=== PATIENT | male | born 1985 | race Caucasian/White ===

== ENCOUNTER 2022-08-03 19:09 | Emergency (ER) | payer SELFPAY ==
[2022-08-03 19:10] VITALS: BP 139/81; PULSE 100; RESP 16; TEMP 36.2; O2SAT 98
[2022-08-03] MEDS: METOCLOPRAMIDE HCL INJ 10 MG/2 ML VIAL IV PUSH (19:30)
[2022-08-03] MEDS: KETOROLAC 30 MG/ML VIAL (*BKC) IV PUSH (19:30)
--- NOTE | 2022-08-03 19:30 | ED.HA ---
HPI - Headache General Chief Complaint: Headache Stated Complaint: headache Source: patient and family Mode of arrival: ambulatory Limitations: no limitations History of Present Illness HPI Narrative: This is a 36-year-old gentleman that presents to the ER with headache, has had this headache for the last week and intensified over last few hours throbbing sensitive to light with noise sensitivity, nauseous with no vomiting has typical migraines and usually takes Tylenol that helps. There is no neck stiffness no fever chills no chest pain no shortness of breath. MD elicited complaint: migraine Onset (ago): day(s) Onset description: gradually Location: frontal Severity: moderate Pain scale (0-10): 8 Quality & Timing: throbbing Exacerbating factors: light and noise Relieving factors: rest, NSAIDs and dark room Related Data Home Medications Medication Instructions Recorded Confirmed amitriptyline 25 mg tablet 25 mg PO DAILY 08/03/22 08/03/22 atenolol 100 mg tablet 100 mg PO DAILY 08/03/22 08/03/22 metformin 500 mg tablet,extended 500 mg PO DAILY 08/03/22 08/03/22 release 24 hr semaglutide 7 mg tablet (Rybelsus) 7 mg PO DAILY 08/03/22 08/03/22 Allergies Allergy/AdvReac Type Severity Reaction Status Date / Time No Known Allergies Allergy Verified 08/09/19 22:35 Review of Systems Review of Systems: All systems reviewed & are unremarkable except as noted in HPI and below PMFSH Past Medical History Medical History Migraine Surgical History Surgical History Hx of shoulder surgery Social History Social History Gender identity (if verbalized by the patient): Male Exam Const: General: healthy appearing Nutritional Appearance: well nourished HENMT: Head: normal to inspection Ears: external ears normal Face/Nose/Sinus: Normal external nose present Face and sinus: normal facial exam Mouth: Yes Normal oral and palatal mucosa present Eyes: Conjunctivae: conjunctivae normal EOM: EOMs intact bilaterally Neck: Neck: normal visual inspection Chest: Chest palpation & inspection: normal inspection of the chest Resp: Effort & Inspection: normal respiratory effort Cardio: Rate: regular rate Rhythm: regular rhythm GI: GI Palp: Yes Soft to palpation Auscultation: normal bowel sounds : General: Yes bladder normal to palpation Back/Spine/Pelvis: Back: no CVA tenderness Skin: General skin exam: normal color Rashes: no rashes Wounds: no wounds Neuro: General: patient oriented x3, moves all extremities, no meningeal signs and no focal motor deficits Cranial nerves: Yes Nystagmus not present Speech: normal speech Gait exam (Neuro): Normal gait present Extrem: General: normal to inspection, no clubbing, cyanosis or edema and no pedal edema Psych: Mental Status: mental status grossly normal Affect: normal affect Course Course Emergency Course: patient received IV fluids, and IV ketorolac 30mg, with Reglan and Benadryl. Reassessment of patient and migraine headache has improved. Critical Care Time Critical Care Time Critical Care Time: No Discharge Plan Discharge Clinical Impression: Migraine Qualifiers: Migraine type: unspecified Status migrainosus presence: without status migrainosus Intractability: not intractable Qualified Code(s): G43.909 - Migraine, unspecified, not intractable, without status migrainosus Patient Disposition: Home, Self-Care Condition: Stable Instructions: Antibiotic Form, Migraine Headache (ED) Additional Instructions: Take medicine as prescribed and follow-up with primary care physician if symptoms persist or worsen. Prescriptions: New tramadol 50 mg tablet 50 mg PO Q6H PRN (Reason: pain) Qty: 20 0RF No Action atenolol 100 mg tablet 100 mg PO DAILY amitriptyline
[2022-08-03] MEDS: diphenhydrAMINE HCl INJ 50 MG/ML VIAL 25 MG IV PUSH (19:31)
[2022-08-03] MEDS: SODIUM CHLORIDE 0.9% IV 500 ML 999 ML IV CONT (19:32)
[2022-08-03 20:20] VITALS: BP 131/88; PULSE 100; RESP 16; TEMP 36.6; O2SAT 98
== END 2022-08-03 20:21 | disposition home or self-care (01) ==
LOC: CHSED 19:36
PROVIDERS: Emergency Provider Emergency Medicine
DX: G43.909 Migraine, unspecified, not intractable, without status migrainosus (principal)
CPT/HCPCS: 96361; 96374; 96375; 99284; J1200; J1885; J2765; J7040

== ENCOUNTER 2022-08-14 19:56 | Emergency (ER) | payer SELFPAY ==
[2022-08-14 20:35] VITALS: BP 121/87; PULSE 75; RESP 16; TEMP 36.3; O2SAT 95
--- NOTE | 2022-08-14 22:28 | ED.SKABFB ---
HPI - Skin/Abscess/Foreign Bdy General Chief complaint: Skin/Abscess/Foreign Body Stated complaint: neck pain/injury Time Seen by Provider: 08/14/22 19:58 Source: patient and RN notes reviewed Mode of arrival: ambulatory Limitations: no limitations History of Present Illness complaint: abscess/boil (of posterior neck) Onset (ago): day(s) (4) Tetanus up to date: unsure Location: neck Severity: mild Severity scale (1-10): 3 Quality: aching Pain Consistency: constant Relieving factors: none Exacerbating factors: none Treatments prior to arrival: none Related Data Home Medications Medication Instructions Recorded Confirmed amitriptyline 25 mg tablet 25 mg PO DAILY 08/03/22 08/14/22 atenolol 100 mg tablet 100 mg PO DAILY 08/03/22 08/14/22 Allergies Allergy/AdvReac Type Severity Reaction Status Date / Time No Known Allergies Allergy Verified 08/14/22 20:56 Review of Systems Review of Systems: All systems reviewed & are unremarkable except as noted in HPI and below Constitutional: Constitutional: Reports no additional constitutional complaints Eyes: Eyes: Reports no additional eye complaints ENT: Reports system reviewed and no additional complaints, except as documented Cardiovascular: Cardiovascular: Reports no additional cardiovascular complaints Respiratory: Respiratory: Reports no additional respiratory complaints Gastrointestinal: Gastrointestinal: Reports no additional gastrointestinal complaints Musculoskeletal: Musculoskeletal: Reports no additional musculoskeletal complaints Integumentary/Breasts: Skin/Breast: Reports system reviewed and no additional complaints, except as docu Neurologic: Reports system reviewed and no additional complaints, except as documented Psychiatric: Psychiatric: Reports no additional psychiatric complaints Endocrine: Endocrine: Reports no additional endocrine complaints Hematologic/Lymphatic: Hematologic/Lymphatic: Reports no additional hematologic/lymphatic complaints Allergic/Immunologic: Allergic/Immunologic: Reports no additional allergic/immunologic complaints PMFSH Past Medical History Medical History (Updated 08/23/22 @ 13:51 by Isaias Chaparro MD) Abscess (06/24/12) Migraine Skin ulcer of neck Surgical History Surgical History Hx of shoulder surgery Social History Social History Gender identity (if verbalized by the patient): Male Exam Const: General: healthy appearing, no acute distress and well nourished Nutritional Appearance: well nourished Orientation/consciousness: patient oriented x3 Limitations: no limitations HENMT: Head: normal to inspection Ears: external ears normal, TM's normal bilaterally and EAC's normal Face/Nose/Sinus: Normal external nose present, Normal nares present, normal facial exam and sinuses nontender Face and sinus: normal facial exam and sinuses nontender Mouth: Yes Normal oral and palatal mucosa present and Yes moist mucous membranes Teeth and gingiva: dentition normal Throat: posterior oropharynx normal Other: posterior neck 1.5 cm diameter hyperemic minimally swollen shallow ucer, minimal pus Eyes: Conjunctivae: conjunctivae normal Pupils: Equal, round and reactive pupils present EOM: EOMs intact bilaterally Neck: Neck: normal visual inspection, no lymphadenopathy and no meningeal signs Other: post neck ulcer Chest: Chest palpation & inspection: normal inspection of the chest Resp: Effort & Inspection: normal respiratory effort Auscultation: clear to auscultation bilaterally Cardio: Rate: regular rate Rhythm: regular rhythm GI: GI Palp: Yes Soft to palpation and No Tenderness to palpation present (GI) Auscultation: normal bowel sounds : General: Yes bladder normal to palpation and Yes no CVA tenderness Back/Spine/Pelvis: Back: no CVA tenderness Skin: General skin exam: n
[2022-08-14] MEDS: IBUPROFEN 400 MG TABLET 800 MG PO (22:47)
[2022-08-14] MEDS: cefTRIAXone 1 GM, LIDOCAINE HCL 1% LOCAL INJ 2.1 ML IM (22:47)
== END 2022-08-14 23:05 | disposition home or self-care (01) ==
PROVIDERS: Emergency Provider Emergency Medicine
DX: L03.221 Cellulitis of neck (principal)
CPT/HCPCS: 96372; 99283; A9270; J0696

== ENCOUNTER 2022-09-21 17:52 | Emergency (ER) | payer OTHER, SELFPAY ==
--- NOTE | ~2022-09-21 | XR_ITS ---
XR wrist RT 2V, XR hand RT 2V 09/21/2022 18:24 INDICATION: Right hand and wrist pain after recent injury PROCEDURE: 2 views right wrist and 2 views right hand COMPARISON: No prior studies for comparison. FINDINGS: Fracture, dislocation or subluxation is not identified. The soft tissues appear within norm al limits. There is a small punctate foreign body adjacent to the first metacarpal distally. IMPRESSION: 1: No acute fracture. 2: Small metallic foreign body adjacent to the first metacarpal distally. Reviewed, dictated and finalized at location [facility]. [employer] IMPRESSION: 1: No acute fracture. 2: Small metallic foreign body adjacent to the first metacarpal distally.
[2022-09-21 17:55] VITALS: BP 157/87; PULSE 74; RESP 18; TEMP 36.9; O2SAT 98
--- NOTE | 2022-09-21 18:36 | ED.UPPEXIN ---
HPI - Extremity Injury (Upper) General Chief Complaint: Extremity Injury, Upper Stated Complaint: right wrist injury Time Seen by Provider: 09/21/22 18:11 Source: patient Mode of arrival: ambulatory Limitations: no limitations History of Present Illness HPI narrative: this is a 36-year-old gentleman that presents with a 1 day history of right anterior hand pain after review his kicked by a cow causing pain with currently mild swelling with no bruising has good range of motion no numbness or tingling. complaint: injury to: right Onset (ago): day(s) Other Extremity Injury: Right: hand ( tender without bruising or swelling) Related Data Home Medications Medication Instructions Recorded Confirmed amitriptyline 25 mg tablet 25 mg PO DAILY 08/03/22 09/21/22 atenolol 100 mg tablet 100 mg PO DAILY 08/03/22 09/21/22 cyclobenzaprine 10 mg tablet 10 mg PO TID 09/21/22 09/21/22 omeprazole 20 mg capsule,delayed 20 mg PO DAILY 09/21/22 09/21/22 release semaglutide 7 mg tablet (Rybelsus) 7 mg PO DAILY 09/21/22 09/21/22 Allergies Allergy/AdvReac Type Severity Reaction Status Date / Time No Known Allergies Allergy Verified 09/21/22 18:06 Review of Systems Review of Systems: All systems reviewed & are unremarkable except as noted in HPI and below PMFSH Past Medical History Medical History Abscess (06/24/12) Migraine Skin ulcer of neck Surgical History Surgical History Hx of shoulder surgery Social History Social History Gender identity (if verbalized by the patient): Male Exam Const: General: healthy appearing and no acute distress Nutritional Appearance: well nourished Orientation/consciousness: patient oriented x3 Limitations: no limitations HENMT: Head: normal to inspection Face/Nose/Sinus: Normal external nose present Face and sinus: normal facial exam Eyes: Conjunctivae: conjunctivae normal Pupils: Equal, round and reactive pupils present EOM: EOMs intact bilaterally Neck: Neck: normal visual inspection Chest: Chest palpation & inspection: normal inspection of the chest Resp: Effort & Inspection: normal respiratory effort Auscultation: clear to auscultation bilaterally Cardio: Rate: regular rate Rhythm: regular rhythm GI: GI Palp: Yes Soft to palpation Auscultation: normal bowel sounds : General: Yes bladder normal to palpation Urinary Catheter: Urinary Catheter: patent and draining Back/Spine/Pelvis: Back: no CVA tenderness Skin: General skin exam: normal color Rashes: no rashes Wounds: no wounds Neuro: General: patient oriented x3, moves all extremities, no meningeal signs and no focal motor deficits Extrem: General: normal to inspection Psych: Mental Status: mental status grossly normal Affect: normal affect Course Course Emergency Course: X-rays reviewed with patient which showed no acute fractures, patient took ibuprofen prior to arriving declined any pain medicine at this time. Vital Signs Vital signs: Vital Signs Temperature 36.9 C 09/21/22 17:55 Pulse Rate 74 09/21/22 17:55 Respiratory Rate 18 09/21/22 17:55 Blood Pressure 157/87 H 09/21/22 17:55 Pulse Oximetry 98 09/21/22 17:55 Oxygen Delivery Room Air 09/21/22 17:55 Temperature 36.9 C 09/21/22 17:55 Pulse Rate 74 09/21/22 17:55 Respiratory Rate 18 09/21/22 17:55 Blood Pressure 157/87 H 09/21/22 17:55 Pulse Oximetry 98 09/21/22 17:55 Oxygen Delivery Room Air 09/21/22 17:55 Critical Care Time Critical Care Time Critical Care Time: No Discharge Plan Discharge Clinical Impression: Hand sprain Qualifiers: Encounter type: initial encounter Laterality: right Qualified Code(s): S63.91XA - Sprain of unspecified part of right wrist and hand, initial encounter Patient Disposition: Home, Self-Ca
== END 2022-09-21 18:47 | disposition home or self-care (01) ==
PROVIDERS: Emergency Provider Emergency Medicine
DX: S63.91XA Sprain of unspecified part of right wrist and hand, initial encounter (principal); W55.22XA Struck by cow, initial encounter
CPT/HCPCS: 73100; 73120; 99283

== ENCOUNTER 2023-04-18 19:06 | Emergency (ER) | payer OTHER, SELFPAY ==
[2023-04-18 19:14] VITALS: BP 165/104; PULSE 111; RESP 16; TEMP 36.8; O2SAT 97
--- NOTE | 2023-04-18 19:26 | ED.GENADULT ---
HPI - General Adult General Chief complaint: Headache Stated complaint: L side pain Time Seen by Provider: 04/18/23 19:16 Source: patient Mode of arrival: ambulatory Limitations: no limitations History of Present Illness HPI narrative: 37-year-old male with uncontrolled diabetes with an HGB A1c greater than 11( on Rybelsus and Jardiance), migraine with left-sided dental infection presents to the ER with -- left-sided facial pain -- recent left-sided dental infection Onset (ago): day(s) ( for 2 days) Location: face and left Radiation: non-radiation Quality: aching Pain Consistency: constant Relieving factors: none Exacerbating factors: none Associated symptoms: denies other symptoms and weakness Related Data Home Medications Medication Instructions Recorded Confirmed amitriptyline 25 mg tablet 25 mg PO DAILY 08/03/22 04/18/23 atenolol 100 mg tablet 100 mg PO DAILY 08/03/22 04/18/23 cyclobenzaprine 10 mg tablet 10 mg PO TID 09/21/22 04/18/23 omeprazole 20 mg capsule,delayed 20 mg PO DAILY 09/21/22 04/18/23 release semaglutide 7 mg tablet (Rybelsus) 7 mg PO DAILY 09/21/22 04/18/23 Allergies Allergy/AdvReac Type Severity Reaction Status Date / Time No Known Allergies Allergy Verified 04/18/23 19:11 Review of Systems Review of Systems: All systems reviewed & are unremarkable except as noted in HPI and below Constitutional: Constitutional: Reports as per HPI and Reports no additional constitutional complaints Eyes: Eyes: Reports as per HPI and Reports no additional eye complaints ENT: Reports system reviewed and no additional complaints, except as documented Comments: left upper and lower jaw pain in the recent past but none today Cardiovascular: Cardiovascular: Reports as per HPI and Reports no additional cardiovascular complaints Respiratory: Respiratory: Reports as per HPI and Reports no additional respiratory complaints Gastrointestinal: Gastrointestinal: Reports as per HPI and Reports no additional gastrointestinal complaints Genitourinary: Genitourinary: Reports no additional male genitourinary complaints and Reports as per HPI Musculoskeletal: Musculoskeletal: Reports no additional musculoskeletal complaints and Reports as per HPI Integumentary/Breasts: Skin/Breast: Reports system reviewed and no additional complaints, except as docu and Reports as per HPI Neurologic: Reports system reviewed and no additional complaints, except as documented and Reports as per HPI Psychiatric: Psychiatric: Reports no additional psychiatric complaints and Reports as per HPI Endocrine: Endocrine: Reports no additional endocrine complaints and Reports as per HPI Hematologic/Lymphatic: Hematologic/Lymphatic: Reports no additional hematologic/lymphatic complaints and Reports as per HPI Allergic/Immunologic: Allergic/Immunologic: Reports no additional allergic/immunologic complaints and Reports as per HPI [facility] Past Medical History Medical History (Updated 04/18/23 @ 19:43 by Doni Díaz MD) Abscess (06/24/12) Diabetes mellitus Migraine Skin ulcer of neck Surgical History Surgical History Hx of shoulder surgery Social History Social History Gender identity (if verbalized by the patient): Male Exam Narrative: hypertension with blood pressure 165/104 Const: General: no acute distress Orientation/consciousness: patient oriented x3 HENMT: Head: normal to inspection Ears: external ears normal Face/Nose/Sinus: Normal external nose present Face and sinus: normal facial exam ( left facial swelling) Mouth: Yes Normal oral and palatal mucosa present Teeth and gingiva: abnormal tooth and associated gingiva ( extensive dental caries) Throat: posterior oropharynx normal ( oral thrush) Eyes: Conjunctivae: conjunctivae normal Pupils: Equal, round and reactive pupils present E
[2023-04-18 19:30] LABS: Glucose Point of Care 288 mg/dl (65-105)
[2023-04-18] MEDS: HYDROcodone/acetaminophen (*CRX) 5-325 MG TABLET 1 TAB PO (19:50)
[2023-04-18] MEDS: AMOXICILLIN/CLAVULANATE K 875-125 MG TAB 1 TABLET PO (19:50)
[2023-04-18 19:57] VITALS: BP 147/94; PULSE 99; RESP 16; TEMP 36.8; O2SAT 100
== END 2023-04-18 19:59 | disposition home or self-care (01) ==
LOC: CHSED 19:49
PROVIDERS: Emergency Provider Internal Medicine Critical Care Medicine; PCP Family Medicine
DX: E11.65 Type 2 diabetes mellitus with hyperglycemia (principal); K08.89 Other specified disorders of teeth and supporting structures; B37.0 Candidal stomatitis; Z79.84 Long term (current) use of oral hypoglycemic drugs
CPT/HCPCS: 82948; 99283; A9270

== ENCOUNTER 2023-05-27 20:01 | Emergency (ER) | payer OTHER, SELFPAY ==
[2023-05-27 20:07] VITALS: BP 157/97; PULSE 99; RESP 18; TEMP 36.5; O2SAT 99
[2023-05-27 20:42] VITALS: BP 137/99
--- NOTE | 2023-05-27 22:40 | ED.GENADULT ---
HPI - General Adult General Chief complaint: Wound/Laceration Stated complaint: Bug Bite Source: patient Mode of arrival: ambulatory Limitations: no limitations History of Present Illness HPI narrative: patient is a 37-year-old white male complains of a sore on his right forearm proximally that he noticed yesterday. Does not remember any trauma or being bit by a bug. The sore is gotten bigger and red and hot and warm hurts more he took some ibuprofen 100 mg without much help. Said today it has been draining clear liquid he has also had some nausea and vomited [address] the emergency department denies any fever. He did not eat very much today but is able to keep liquids down. Denies any cough fever sore throat runny nose bleeding or bruising dizziness or lightheadedness other lumps or bumps weakness or numbness problems walking talking seeing or hearing problems voiding stooling. denies any other complaints. Past medical history diabetes Past surgical history knee surgery left shoulder Allergies no known drug allergies Related Data Home Medications Medication Instructions Recorded Confirmed amitriptyline 25 mg tablet 25 mg PO DAILY 08/03/22 05/27/23 atenolol 100 mg tablet 100 mg PO DAILY 08/03/22 05/27/23 cyclobenzaprine 10 mg tablet 10 mg PO TID 09/21/22 05/27/23 omeprazole 20 mg capsule,delayed 20 mg PO DAILY 09/21/22 05/27/23 release semaglutide 7 mg tablet (Rybelsus) 7 mg PO DAILY 09/21/22 05/27/23 Allergies Allergy/AdvReac Type Severity Reaction Status Date / Time No Known Allergies Allergy Verified 05/27/23 20:05 Review of Systems Review of Systems: All systems reviewed & are unremarkable except as noted in HPI and below PMFSH Past Medical History Medical History Abscess (06/24/12) Diabetes mellitus Migraine Skin ulcer of neck Surgical History Surgical History Hx of shoulder surgery Social History Social History Gender identity (if verbalized by the patient): Male Exam Narrative: White male patient no apparent distress.? Head normocephalic, atraumatic.? Eyes conjunctiva pink sclera nonicteric.? Extraocular movements are intact.? Ears externally normal.? Oropharynx is clear with moist mucous membranes without exudates.? Neck is supple nontender no lymphadenopathy.? Back is nontender.? Lungs are clear.? Heart is regular rate and rhythm without murmurs gallops or rubs.? Chest wall is nontender.? Abdomen is soft and nontender no hepatosplenomegaly or masses no CVA tenderness no abdominal bruits.? Extremities: Right proximal forearm has a 1 cm sore with surrounding erythema and induration of about 3 x 3 cm red warm and tender with clear discharge.? Skin is warm and dry.? Neurological patient is alert and oriented x4.? Motor and sensory grossly intact.? Gait is normal. Course Vital Signs Vital signs: Vital Signs Temperature 36.5 C 05/27/23 20:07 Pulse Rate 99 05/27/23 20:07 Respiratory Rate 18 05/27/23 20:07 Blood Pressure 157/97 H 05/27/23 20:07 Pulse Oximetry 99 05/27/23 20:07 Oxygen Delivery Room Air 05/27/23 20:07 Temperature 36.5 C 05/27/23 23:50 Pulse Rate 80 05/27/23 23:50 Respiratory Rate 18 05/27/23 23:50 Blood Pressure 137/99 H 05/27/23 23:50 Pulse Oximetry 98 05/27/23 23:50 Oxygen Delivery Room Air 05/27/23 20:07 Medical Decision Making MDM Narrative Medical decision making narrative: Patient Patient was placed in room 3 history and physical were performed. I and D of right forearm was done. Independent Historian: ? Differential Dx includes but not limited to: abscess phlegmon cellulitis Medications were Reviewed:? home medicines reviewed ? Medications treatments given: Tylenol 1000 mg, Zofran 4 mg ODT, 1% lidocaine for anesthesia Incision a
[2023-05-27] MEDS: LIDOCAINE HCL 1% LOCAL INJ 10 ML VIAL INFILTRATE (22:55)
[2023-05-27] MEDS: ONDANSETRON HCL ODT 4 MG TABLET PO (22:55)
[2023-05-27] MEDS: ACETAMINOPHEN 500 MG TABLET 1000 MG PO (22:55)
[2023-05-27 23:50] VITALS: BP 137/99; PULSE 80; RESP 18; TEMP 36.5; O2SAT 98
[2023-05-27] MEDS: AMOXICILLIN/CLAVULANATE K 875-125 MG TAB 1 TABLET PO (23:52)
== END 2023-05-27 23:51 | disposition home or self-care (01) ==
PROVIDERS: Emergency Provider Emergency Medicine; PCP Family Medicine
DX: L03.113 Cellulitis of right upper limb (principal); E11.9 Type 2 diabetes mellitus without complications; Z79.899 Other long term (current) drug therapy
CPT/HCPCS: 99283; A9270